=== PATIENT | female | born 1975 | race Hispanic/Latino ===

== ENCOUNTER 2019-01-06 11:44 | Emergency (ER) | payer OTHER ==
[2019-01-06] MEDS ORDERED: ACETAMINOPHEN 325 MG TAB ONE (12:19)
== END 2019-01-06 15:19 | disposition home or self-care (01) ==
LOC: EDH 11:44
DX: S86.911A Strain of unspecified muscle(s) and tendon(s) at lower leg level, right leg, initial encounter (principal); Z98.51 Tubal ligation status; Z98.890 Other specified postprocedural states; Z87.891 Personal history of nicotine dependence; X58.XXXA Exposure to other specified factors, initial encounter; Y93.89 Activity, other specified; Y92.89 Other specified places as the place of occurrence of the external cause; Y99.8 Other external cause status
CPT/HCPCS: 73590; 93971

== ENCOUNTER → 2023-04-14 | Outpatient (CLI) | payer BC, OTHER ==
[2023-04-14 21:40] VITALS: PULSE 74; RESP 10
[2023-04-14 22:00] VITALS: PULSE 75; RESP 12
[2023-04-14 22:36] VITALS: PULSE 76; RESP 12
[2023-04-14 23:02] VITALS: PULSE 85; RESP 14
[2023-04-14 23:35] VITALS: PULSE 67; RESP 14
[2023-04-14 23:59] VITALS: PULSE 73; RESP 12
[2023-04-15] VITALS (19 sets, daily range): PULSE 51–74; RESP 11–19
== END | disposition home or self-care (01) ==
LOC: SLP 10:00
PROVIDERS: ATTEND Nurse Practitioner Family
DX: G47.33 Obstructive sleep apnea (adult) (pediatric) (principal)
CPT/HCPCS: 95810; 95811

== ENCOUNTER → 2024-12-30 | Outpatient (CLI) | payer BC, OTHER | END | disposition home or self-care (01) | LOC: RAH 14:31 | PROVIDERS: ATTEND Nurse Practitioner Family | DX: Z12.31 Encounter for screening mammogram for malignant neoplasm of breast (principal) | CPT/HCPCS: 77067 ==